=== PATIENT | male | born 1955 | race Caucasian/White ===

== ENCOUNTER 2019-07-30 11:48 | Day surgery (SDC) | payer OTHER ==
[~2019-07-30] VITALS: Ht 193 cm; Wt 109.5 kg
[~2019-07-30 11:48] MED LIST: LOSA50 PO; PANT40 PO; Ventolin/Prove6.7 GM INH; ZYRTEC10 MG PO
--- NOTE | 2019-07-30 14:03 | NUR ---
07/30/19 1403 Kassie Casey UGI BARIUM AND 2 VIEW X RAY SCHEDULED PER DR MCCLOUD. PT AWARE AND PROVIDED APPOINTMENT INFO.
== END 2019-07-30 14:00 | disposition home or self-care (01) ==
LOC: ORSCSDS 11:48
PROVIDERS: Internal Medicine Gastroenterology
PROC: 0DBK8ZX Excision of Ascending Colon, Via Natural or Artificial Opening Endoscopic, Diagnostic (ICD-10-PCS; principal; 2019-07-30 13:00)
PROC: 0DBH8ZX Excision of Cecum, Via Natural or Artificial Opening Endoscopic, Diagnostic (ICD-10-PCS; principal; 2019-07-30 13:00)
PROC: 0DBN8ZX Excision of Sigmoid Colon, Via Natural or Artificial Opening Endoscopic, Diagnostic (ICD-10-PCS; principal; 2019-07-30 13:00)
PROC: 0DBM8ZX Excision of Descending Colon, Via Natural or Artificial Opening Endoscopic, Diagnostic (ICD-10-PCS; principal; 2019-07-30 13:00)
DX: Z12.11 Encounter for screening for malignant neoplasm of colon (principal); Z86.010 Personal history of colon polyps; D12.4 Benign neoplasm of descending colon; D12.2 Benign neoplasm of ascending colon; D12.0 Benign neoplasm of cecum; K63.5 Polyp of colon; K21.9 Gastro-esophageal reflux disease without esophagitis; K57.30 Diverticulosis of large intestine without perforation or abscess without bleeding; E66.9 Obesity, unspecified; Z68.33 Body mass index [BMI] 33.0-33.9, adult; F17.210 Nicotine dependence, cigarettes, uncomplicated; Z79.899 Other long term (current) drug therapy
CPT/HCPCS: 88305; J2704; J7120

== ENCOUNTER 2019-08-20 08:36 | Day surgery (SDC) | payer OTHER ==
[~2019-08-20] VITALS: Ht 188 cm; Wt 113.8 kg
[2019-08-20] MEDS ORDERED: OSTERA TABLET1 EACH (08:54)
[2019-08-20] MEDS ORDERED: ACET120S (08:54)
== END 2019-08-20 10:43 | disposition home or self-care (01) ==
LOC: ORSCSDS 08:36
PROVIDERS: Internal Medicine Gastroenterology
PROC: 0D758ZZ Dilation of Esophagus, Via Natural or Artificial Opening Endoscopic (ICD-10-PCS; principal; 2019-08-20 09:45)
DX: K21.9 Gastro-esophageal reflux disease without esophagitis (principal); E66.9 Obesity, unspecified; J45.909 Unspecified asthma, uncomplicated; Z68.33 Body mass index [BMI] 33.0-33.9, adult; F17.210 Nicotine dependence, cigarettes, uncomplicated; Z79.899 Other long term (current) drug therapy
CPT/HCPCS: C1726; J2704; J7120

== ENCOUNTER → 2020-08-05 | Outpatient (CLI) | payer OTHER ==
[~2020-08-05] MED LIST changes: +ACET120S; +OSTERA TABLET1 EACH
== END | disposition home or self-care (01) ==
LOC: LAB SHORT 11:59 → PLD 11:59
DX: D48.5 Neoplasm of uncertain behavior of skin (principal); L82.1 Other seborrheic keratosis
CPT/HCPCS: 88305

== ENCOUNTER 2021-04-14 15:21 | Day surgery (SDC) | payer MEDICARE, OTHER ==
[2021-04-14] MEDS ORDERED: ALMACONE SUSPE355 ML (16:24)
[2021-04-14] MEDS ORDERED: BENADRYL25 MG PO (16:25)
[2021-04-14] MEDS ORDERED: CONSTULOSE10 GM/15 M PO (16:26)
[2021-04-14] MEDS ORDERED: FURO20 PO (16:26)
[2021-04-14] MEDS ORDERED: MIDO5 PO (16:27)
[2021-04-14] MEDS ORDERED: B-1100 M1 PO (16:27)
[2021-04-14] MEDS ORDERED: Aldactone50 MG PO (16:27)
== END 2021-04-14 18:15 | disposition home or self-care (01) ==
LOC: ATC 15:21
DX: K70.31 Alcoholic cirrhosis of liver with ascites (principal)
CPT/HCPCS: 49083; 96365; 96366; P9046

== ENCOUNTER 2021-05-13 13:30 | Day surgery (SDC) | payer MEDICARE, OTHER ==
[~2021-05-13 13:30] MED LIST changes: +ALMACONE SUSPE355 ML; +Aldactone50 MG PO; +B-1100 M1 PO; +BENADRYL25 MG PO; +CONSTULOSE10 GM/15 M PO; +FURO20 PO; +MIDO5 PO
== END 2021-05-13 23:56 | disposition home or self-care (01) ==
LOC: US 13:30
DX: K70.31 Alcoholic cirrhosis of liver with ascites (principal)
CPT/HCPCS: 49083

== ENCOUNTER 2021-05-20 13:50 | Day surgery (SDC) | payer MEDICARE, OTHER | END 2021-05-20 23:00 | disposition home or self-care (01) | LOC: US 13:50 | DX: K70.31 Alcoholic cirrhosis of liver with ascites (principal) | CPT/HCPCS: 49083 ==

== ENCOUNTER 2021-05-27 13:39 | Day surgery (SDC) | payer MEDICARE, OTHER | END 2021-05-27 14:00 | disposition home or self-care (01) | LOC: US 13:39 | DX: K70.31 Alcoholic cirrhosis of liver with ascites (principal) | CPT/HCPCS: 49083 ==

== ENCOUNTER 2021-06-03 13:32 | Day surgery (SDC) | payer MEDICARE, OTHER | END 2021-06-03 22:57 | disposition home or self-care (01) | LOC: US 13:32 | DX: K70.31 Alcoholic cirrhosis of liver with ascites (principal) | CPT/HCPCS: 49083 ==

== ENCOUNTER 2021-06-10 13:35 | Day surgery (SDC) | payer MEDICARE, OTHER | END 2021-06-10 23:48 | disposition home or self-care (01) | LOC: US 13:35 | DX: K70.31 Alcoholic cirrhosis of liver with ascites (principal) | CPT/HCPCS: 49083 ==

== ENCOUNTER 2021-06-17 13:34 | Day surgery (SDC) | payer MEDICARE, OTHER | END 2021-06-17 23:29 | disposition home or self-care (01) | LOC: ATC 13:34 → US 13:34 → ATC 23:29 | DX: K70.31 Alcoholic cirrhosis of liver with ascites (principal) | CPT/HCPCS: 49083; 96365; 96366; P9046 ==

== ENCOUNTER 2021-06-26 08:45 | Day surgery (SDC) | payer MEDICARE, OTHER | END 2021-06-26 23:18 | disposition home or self-care (01) | LOC: US 08:45 | DX: K70.31 Alcoholic cirrhosis of liver with ascites (principal) | CPT/HCPCS: 49083 ==

== ENCOUNTER 2021-07-03 14:51 | Day surgery (SDC) | payer MEDICARE, OTHER | END 2021-07-03 23:01 | disposition home or self-care (01) | LOC: US 14:51 | DX: K70.31 Alcoholic cirrhosis of liver with ascites (principal) | CPT/HCPCS: 49083 ==

== ENCOUNTER 2021-07-08 13:33 | Day surgery (SDC) | payer MEDICARE, OTHER | END 2021-07-08 23:06 | disposition home or self-care (01) | LOC: US 13:33 | DX: K70.31 Alcoholic cirrhosis of liver with ascites (principal) | CPT/HCPCS: 49083 ==

== ENCOUNTER 2021-07-22 13:47 | Day surgery (SDC) | payer MEDICARE, OTHER | END 2021-07-23 12:00 | disposition home or self-care (01) | LOC: US 13:47 | DX: K70.31 Alcoholic cirrhosis of liver with ascites (principal) | CPT/HCPCS: 49083; P9046 ==

== ENCOUNTER 2021-07-24 22:12 | Inpatient (IN) | payer MEDICARE ==
[~2021-07-24] VITALS: Ht 185.4 cm; Wt 88.2 kg
[~2021-07-24 22:12] MED LIST changes: -ALMACONE SUSPE355 ML; +ALMACONE SUSPE355 ML PO
[2021-07-24 22:27] LABS: BASOPHILS ABSOLUTE AUTO 0.03 K/mm3 (0.00-0.23); BASOPHILS PERCENT AUTO 0 % (0-2); EOSINOPHILS ABSOLUTE AUTO 0.19 K/mm3 (0.00-0.68); EOSINOPHILS PERCENT AUTO 2 % (0-6); Hematocrit 37.6 % (37.0-53.0); Hemoglobin 13.7 g/dL (13.5-17.5); IMMATURE GRAN ABSOLUTE AUTO 0.06 K/mm3 (0.00-0.10); IMMATURE GRAN PERCENT AUTO 1 % (0-1); LYMPHOCYTES ABSOLUTE AUTO 1.35 K/mm3 (0.84-5.20); LYMPHOCYTES PERCENT AUTO 12 % (21-46); MONOCYTES ABSOLUTE AUTO 1.56 K/mm3 (0.16-1.47); MONOCYTES PERCENT AUTO 14 % (4-13); Mean Corpuscular HGB 34.3 pg (26.0-34.0); Mean Corpuscular HGB Conc 36.4 g/dL (31.5-36.5); Mean Corpuscular Volume 94 fL (80-100); Mean Platelet Volume 9.8 fL (9.1-12.4); NEUTROPHILS ABSOLUTE AUTO 7.69 K/mm3 (1.96-9.15); NEUTROPHILS PERCENT AUTO 71 % (41-73); Platelet Count 204 K/mm3 (150-400); RDW Coefficient Variation 15.1 % (11.7-14.2); RDW Standard Deviation 52.7 fL (35.1-46.3); Red Blood Cell Count 3.99 M/mm3 (4.30-5.90); White Blood Cell Count 10.88 K/mm3 (4.00-11.30)
[2021-07-24 23:04] LABS: Alanine Aminotransfer (ALT/SGP 46 U/L (12-78); Albumin, Blood 2.8 g/dL (3.4-5.0); Albumin/Globulin Ratio 0.6 (0.8-1.8); Alk Phos 165 U/L (50-136); Anion Gap 7 mmol/L (6-16); Aspartate Aminotrans (AST/SGOT 65 U/L (12-37); Bilirubin, Total 1.2 mg/dL (0.1-1.0); Blood Urea Nitrogen 53 mg/dL (8-24); CO2, Blood 19 mmol/L (21-32); Chloride, Blood 104 mmol/L (98-108); Creatinine, Blood 1.04 mg/dL (0.60-1.20); Globulin, Blood 4.5 g/dL (2.2-4.0); Glomerular Filtration Rate >60 (60-); Glucose, Blood 115 mg/dL (70-99); Potassium, Blood 6.3 mmol/L (3.5-5.5); Sodium, Blood 130 mmol/L (136-145); Total Protein, Blood 7.3 g/dL (6.4-8.2)
[2021-07-24 23:16] LABS: International Normalized Ratio 1.17; Prothrombin Time Results 12.2 Sec (9.7-11.5)
[2021-07-25 00:32] LABS: Base Excess Venous -5.9 mmol/L; Bicarbonate Venous 20.6 mmol/L (24.0-30.0); PCO2 Venous 30.3 mmHg (38-42); PO2 Venous 95.2 mmHg (38-42)
[2021-07-25 01:18] LABS: Influenza A, PCR NEGATIVE (NEGATIVE); Influenza B, PCR NEGATIVE (NEGATIVE); Resp Syncytial Virus, PCR NEGATIVE (NEGATIVE); SARS-Cov-2 (COVID-19) PCR, MMC NEGATIVE (NEGATIVE)
[2021-07-25 03:06] LABS: Source, Urine Clean Catch
[2021-07-25 03:08] LABS: Bilirubin, Urine Neg (Neg); Blood, Urine 5+ (Neg); Glucose Qualitative, Urine Neg (Neg); Ketones, Urine Neg (Neg); Leukocyte Esterase, Urine 1+ (Neg); Nitrite, Urine Neg (Neg); Protein, Urine 2+ (Neg); Urobilinogen, Urine NORM (Normal)
[2021-07-25 03:21] LABS: Appearance, Urine Hazy (Clear); Color, Urine Red (P-Yellow)
[2021-07-25 03:22] LABS: Bacteria Rare /hpf; Red Blood Cells, Urine TNTC /hpf (0-2); Squamous Epithelial Cells Few /hpf (Few); White Blood Cells, Urine Rare /hpf (0-5)
[2021-07-25 09:37] LABS: BASOPHILS ABSOLUTE AUTO 0.03 K/mm3 (0.00-0.23); BASOPHILS PERCENT AUTO 0 % (0-2); EOSINOPHILS ABSOLUTE AUTO 0.09 K/mm3 (0.00-0.68); EOSINOPHILS PERCENT AUTO 1 % (0-6); Hematocrit 36.3 % (37.0-53.0); Hemoglobin 13.1 g/dL (13.5-17.5); IMMATURE GRAN ABSOLUTE AUTO 0.07 K/mm3 (0.00-0.10); IMMATURE GRAN PERCENT AUTO 1 % (0-1); LYMPHOCYTES ABSOLUTE AUTO 0.83 K/mm3 (0.84-5.20); LYMPHOCYTES PERCENT AUTO 6 % (21-46); MONOCYTES ABSOLUTE AUTO 1.59 K/mm3 (0.16-1.47); MONOCYTES PERCENT AUTO 12 % (4-13); Mean Corpuscular HGB 33.8 pg (26.0-34.0); Mean Corpuscular HGB Conc 36.1 g/dL (31.5-36.5); Mean Corpuscular Volume 94 fL (80-100); Mean Platelet Volume 10.2 fL (9.1-12.4); NEUTROPHILS ABSOLUTE AUTO 10.63 K/mm3 (1.96-9.15); NEUTROPHILS PERCENT AUTO 80 % (41-73); Platelet Count 223 K/mm3 (150-400); RDW Coefficient Variation 15.1 % (11.7-14.2); RDW Standard Deviation 52.2 fL (35.1-46.3); Red Blood Cell Count 3.88 M/mm3 (4.30-5.90); White Blood Cell Count 13.24 K/mm3 (4.00-11.30)
[2021-07-25 09:57] LABS: Alanine Aminotransfer (ALT/SGP 44 U/L (12-78); Albumin, Blood 2.7 g/dL (3.4-5.0); Albumin/Globulin Ratio 0.7 (0.8-1.8); Alk Phos 117 U/L (50-136); Anion Gap 9 mmol/L (6-16); Aspartate Aminotrans (AST/SGOT 64 U/L (12-37); Bilirubin, Total 1.9 mg/dL (0.1-1.0); Blood Urea Nitrogen 55 mg/dL (8-24); Bun/Creatinine Ratio 45.8 (12.0-20.0); CO2, Blood 17 mmol/L (21-32); Calcium, Blood 9.3 mg/dL (8.5-10.1); Chloride, Blood 106 mmol/L (98-108); Globulin, Blood 3.8 g/dL (2.2-4.0); Glomerular Filtration Rate >60 (60-); Glucose, Blood 119 mg/dL (70-99); Sodium, Blood 132 mmol/L (136-145); Total Protein, Blood 6.5 g/dL (6.4-8.2)
[2021-07-25 10:03] LABS: Albumin, Blood 2.6 g/dL (3.4-5.0)
[2021-07-25 11:34] LABS: Base Excess Venous -5.1 mmol/L; Bicarbonate Venous 21.8 mmol/L (24.0-30.0); PCO2 Venous 22.3 mmHg (38-42); PO2 Venous 119 mmHg (38-42); pH Blood Venous 7.51 (7.34-7.37)
[2021-07-25 11:34] LABS: Automated BF RBC Count 0.005 M/mm3 (0-0); Automated BF WBC Count 0.261 K/mm3 (0-999); Body Fluid WBC Count 261 /mm3 (0-999); RBC Count, Body Fluid 5000 /mm3 (0-0)
[2021-07-25 11:43] LABS: Albumin, Body Fluid 0.3 g/dL
[2021-07-25 11:55] LABS: Appearance, Body Fluid Cloudy (Clear); Color, Body Fluid Amber (None-Yellow); Total Cell Count, Body Fluid 100
[2021-07-25 11:57] LABS: Lactate Dehydrogenase, Body Fl 68 U/L
[2021-07-25 12:00] LABS: Protein, Body Fluid 1.1 g/dL
[2021-07-25 13:37] LABS: Glucose, Blood 110 mg/dL (70-99)
--- NOTE | 2021-07-25 15:20 | NUR ---
REPORT RECIEVED FROM ER NURSE AT 1137
[2021-07-25 16:27] LABS: Glucose, Body Fluid 134 mg/dL
--- NOTE | 2021-07-25 16:48 | NUR ---
RECTAL TUBE PLACED AT 1600. LACTULOSE MIXED WITH 700ML STERILE WATER AND ADMINISTERED PER TUBE, TOTALING 1,000ML INPUT. 700ML WAS IN BAG WHEN REMOVED. STAFF AND THIS RN WAS CLEANING PT, ADDITION LACTULOSE LIQUIDS BEGAN LEAKING OUT OF PT ANUS; UNMEASURABLE AMOUNT.
--- NOTE | 2021-07-25 18:28 | NUR ---
UPDATE PT ARRIVED TO UNIT AT 1536 VIA [facility]. PT WAS TRANSFERED TO PCU BED WITH SLIDE SHEET 4 MEDICAL PERSONEL. PT WOULD MOAN WHEN BEING MOVED. PT REMAINED IN THE BROWN WHILE PT WAS TRANSFERED, RECTAL TUBE PLACED, LACTULOSE ADMINISTERED, AND CLEANED UP AFTER INTERVENTION. ONCWE PT WAS IN ROOM, SHE ASKED NURSE "CAN I GET A PRINT OUT OF HIS LABS." THIS RN INFORMED SPOUSE THAT WE ARE NOT ABLE TO PRINT THE VALUES OUT BUT COULD LOOK THEM UP. PT THEN ASKED "CAN I STAY WITH HIM PETERT?" SPOUSE WAS INFORMED THAT VISITATION WAS FROM 2PM-6PM AND THAT ANY ADDITION VISITATION TIME WAS WOULD HAVE TO BE CLEARED BY THE ARMOND NURSE ON DUTY. SPOUSE STATED "WELL HE CANNOT SPEAK FOR HIMSELF." PT THEN ASKED FOR PATIENT ADVOCATE, THIS RN SAID HE WILL TRY TO HAVE THE ADVOCATE COME. AFTER FINDING OUT THAT PATIENT ADVOCATES WILL NOT BE PRESENT UNTIL TUESDAY, PT SPOUSE ASKED FOR NURSING FINNISH RUBBER. NURSE FINNISH RUBBER SPOKE WITH SPOUSE. NURSE FINNISH RUBBER ASKED THIS RN TO CONTACT DOCTOR AND ASK IF THE DOCTOR COULD TALK WITH SPOUSE ABOUT PLAN OF CARE FOR PT. THIS RN CONTACTED DR LLOYD. DR VALIENTE SPOKE WITH SPOUSE OF PT AND THEN WITH POULTRY VETERINARIAN. POULTRY VETERINARIAN INFORMED THIS RN THAT PT SPOUSE COULD STAY UNTIL 8PM AND THAT AFTER THAT SPUSE SHOULD TRY AND HEAD HOME TO GET SOME SLEEP.
--- NOTE | 2021-07-25 19:42 | NUR ---
SHIFT UPDATE PT OBTUNDED WHEN ARRIVED TO UNIT. PT USING ACCESSORY MUSCLES WHEN BREATHING UPON ARRIVAL, BREATHING MORE AT EASE AT END OF SHIFT. PT AT BEDSIDE. NG TUBE IN PLACE. NS RUNNING PER EMAR.
[2021-07-26 04:03] LABS: BASOPHILS ABSOLUTE AUTO 0.03 K/mm3 (0.00-0.23); BASOPHILS PERCENT AUTO 0 % (0-2); EOSINOPHILS ABSOLUTE AUTO 0.08 K/mm3 (0.00-0.68); EOSINOPHILS PERCENT AUTO 1 % (0-6); Hematocrit 38.7 % (37.0-53.0); Hemoglobin 13.6 g/dL (13.5-17.5); IMMATURE GRAN ABSOLUTE AUTO 0.05 K/mm3 (0.00-0.10); IMMATURE GRAN PERCENT AUTO 0 % (0-1); LYMPHOCYTES ABSOLUTE AUTO 0.92 K/mm3 (0.84-5.20); LYMPHOCYTES PERCENT AUTO 7 % (21-46); MONOCYTES ABSOLUTE AUTO 1.79 K/mm3 (0.16-1.47); MONOCYTES PERCENT AUTO 14 % (4-13); Mean Corpuscular HGB 33.7 pg (26.0-34.0); Mean Corpuscular HGB Conc 35.1 g/dL (31.5-36.5); Mean Corpuscular Volume 96 fL (80-100); Mean Platelet Volume 10.1 fL (9.1-12.4); NEUTROPHILS ABSOLUTE AUTO 10.35 K/mm3 (1.96-9.15); NEUTROPHILS PERCENT AUTO 78 % (41-73); Platelet Count 174 K/mm3 (150-400); RDW Coefficient Variation 15.4 % (11.7-14.2); RDW Standard Deviation 54.4 fL (35.1-46.3); Red Blood Cell Count 4.04 M/mm3 (4.30-5.90); White Blood Cell Count 13.22 K/mm3 (4.00-11.30)
[2021-07-26 04:22] LABS: Alanine Aminotransfer (ALT/SGP 47 U/L (12-78); Albumin, Blood 2.6 g/dL (3.4-5.0); Albumin/Globulin Ratio 0.6 (0.8-1.8); Alk Phos 84 U/L (50-136); Anion Gap 7 mmol/L (6-16); Aspartate Aminotrans (AST/SGOT 72 U/L (12-37); Bilirubin, Total 3.5 mg/dL (0.1-1.0); Blood Urea Nitrogen 56 mg/dL (8-24); Bun/Creatinine Ratio 47.5 (12.0-20.0); CO2, Blood 17 mmol/L (21-32); Chloride, Blood 114 mmol/L (98-108); Creatinine, Blood 1.18 mg/dL (0.60-1.20); Globulin, Blood 4.3 g/dL (2.2-4.0); Glomerular Filtration Rate >60 (60-); Glucose, Blood 113 mg/dL (70-99); Magnesium, Blood 1.8 mg/dL (1.6-2.4); Potassium, Blood 5.6 mmol/L (3.5-5.5); Sodium, Blood 138 mmol/L (136-145); Total Protein, Blood 6.9 g/dL (6.4-8.2)
--- NOTE | 2021-07-26 06:04 | NUR ---
SHIFT SUMMARY PT HAS HAD VERY LITTLE SLEEP. HE HAS BEEN VERY RESTLESS, MOANING AND JERKING T/O THE NIGHT. PT WILL OPEN EYES BUT DOES NOT FOLLOW COMMANDS. PT SEEMS VERY UNCOMFORTABLE AND WILL SHIFT TO RIGHT SIDE SOMTIMES CURL TO POSITION. THIS MORNING PT SAID "OWE" AND ATTEMPTED SITTING UP SEVERAL TIMES. THIS NURSE CALLED DR ESTRADA TO GET PAIN MED AND VEST ORDER. VITALS ARE STABLE AND IS ON ROOM AIR. HE HAS HAD LACTULOSE PER TUBE WITH ONLY SMALL SOFT BM AT BEGINING OF SHIFT. BED ALARM IS ACTIVATED DUE TO JERKING AND ATTEMPTING TO SIT UP. CALL LIGHT IS WITHIN REACH.
[2021-07-26 13:44] LABS: Anion Gap 10 mmol/L (6-16); Blood Urea Nitrogen 56 mg/dL (8-24); Bun/Creatinine Ratio 47.9 (12.0-20.0); CO2, Blood 15 mmol/L (21-32); Calcium, Blood 9.9 mg/dL (8.5-10.1); Chloride, Blood 116 mmol/L (98-108); Creatinine, Blood 1.17 mg/dL (0.60-1.20); Glomerular Filtration Rate >60 (60-); Glucose, Blood 101 mg/dL (70-99); Sodium, Blood 141 mmol/L (136-145)
--- NOTE | 2021-07-26 17:25 | NUR ---
SHIFT SUMMARY; ASSUMED CARE AT 0700. ALERT TO VERBAL AND PHYSICAL STIMULI ONLY. DOES NOT FOLLOW COMMANDS, MOANS, YELLS, AND PULLS AGAINST RESTRAINTS. AGITATED AND KICKING WITH CARE. BILATERAL WRIST RESTRAINTS IN PLACE. NG TUBE INPLACE, NS INFUSING AT 50ML/HR. LIQUID DIARRHEA CONTINUALLY THROUGHOUT DAY. RECTAL TUBE PLACED. MULTIPLE BED CHANGES DURING SHIFT WITH ETHAN CARE. SKIN TEARS BILATERALLY ON ARMS. MEPILEX PLACED TO ELBOWS AND FOREARM OF LEFT ARM. QUITE AND SLEEPS WHEN NOT IN ROOM. SPOUSE TO BEDSIDE IN AFTERNOON AND WAS UPDATED BY ATTENDING MD. NO MEDS FOR AGITATION AT THIS TIME DUE TO NEED TO MONITOR NEURO STATUS. ORAL CARE DIFFICULT, PULLS HEAD, CLINCHES TEETH, YELLS WHEN ATTEMPTED. SEVERAL ATTEMPTS DURING SHIFT. MOUTH MOISTURIZER APPLIED. VSS, WILL CONTINUE TO MONITOR AND TREAT UNTIL CHANGE OF SHIFT.
--- NOTE | 2021-07-26 20:43 | NUR ---
CARE ASSUMPTION PT ALERT, NOT ORIENTED. MOANS, YELLS "HELP ME". SP02>92% ON RA. TELEMETRY READS NSR HR 80'S. MEDS GIVEN THROUGH NG TUBE. PT PULLED RECTAL TUBE UPON CARE ASSUMPTION, NO BLEEDING NOTED. LINEN CHANGED. C/D ATTENDS IN PLACE. PT MOVING FREQUENTLY, MOANING, TRYING TO PULL AT LINES AND CORDS. TUFF CUFFS IN PLACE. ORAL CARE ATTEMPTED, PT THRASHING HEAD AND ATTEMPTING TO BITE. BED ALARM ON.
[2021-07-27 04:56] LABS: Alanine Aminotransfer (ALT/SGP 40 U/L (12-78); Albumin, Blood 2.1 g/dL (3.4-5.0); Albumin/Globulin Ratio 0.6 (0.8-1.8); Alk Phos 66 U/L (50-136); Anion Gap 8 mmol/L (6-16); Aspartate Aminotrans (AST/SGOT 72 U/L (12-37); Blood Urea Nitrogen 50 mg/dL (8-24); Bun/Creatinine Ratio 49.5 (12.0-20.0); CO2, Blood 14 mmol/L (21-32); Calcium, Blood 8.5 mg/dL (8.5-10.1); Chloride, Blood 125 mmol/L (98-108); Creatinine, Blood 1.01 mg/dL (0.60-1.20); Globulin, Blood 3.7 g/dL (2.2-4.0); Glomerular Filtration Rate >60 (60-); Glucose, Blood 90 mg/dL (70-99); Magnesium, Blood 1.6 mg/dL (1.6-2.4); Potassium, Blood 3.7 mmol/L (3.5-5.5); Sodium, Blood 147 mmol/L (136-145); Total Protein, Blood 5.8 g/dL (6.4-8.2)
--- NOTE | 2021-07-27 07:35 | NUR ---
SHIFT SUMMARY PT ALERT, ORIENTED TO SELF. MOANS, ABLE TO ANSWER BASIC YES OR NO QUESTIONS. SP02>92% ON RA. TELEMETRY READS NSR HR 80'S. MEDS GIVEN THROUGH NG TUBE. PT PULLED RECTAL TUBE UPON CARE ASSUMPTION, NO BLEEDING NOTED. LINEN CHANGED MULTIPLE TIMES THIS SHIFT. C/D ATTENDS IN PLACE. PT MOVING FREQUENTLY, MOANING, TRYING TO PULL AT LINES AND CORDS. TUFF CUFFS IN PLACE. PT ALLOWED ORAL CARE X2 THIS SHIFT. BED ALARM ON.
--- NOTE | 2021-07-27 11:49 | NUR ---
PT REFUSED ORAL CARE ON ROOF OF MOUTH AND IN THE BACK OF THE MOUTH. PT ALLOWED ORAL CARE ON FRONT/SIDE TEETH. FOLLOWED COMMANDS TO OPEN MOUTH AND SMILE.
--- NOTE | 2021-07-27 17:34 | NUR ---
SHIFT SUMMARY PT CONTINUES TO BE CONFUSED AND AGITATED THROUGHOUT THE SHIFT. ALERT AND ORIENTED X2 TO SELF AND PLACE. BED ALARM AND RAILS IN PLACE. BILATERAL WRIST RETRAINTS. PATIENT CONTINUES TO ASK FOR HELP TO REMOVE RESTRAINTS. UNABLE TO REDIRECT. PT PULLED NG TUBE OUT IN AM. NEW NG TUBE PLACED AROUND 1400. AIR ASPIRATION TO VERIFY PLACEMENT. SCATTERED WOUNDS WITH OPTIFOAM DRESSINGS ON BILATERAL FOREARMS, WRISTS, AND ELBOWS. REDNESS TO COCCYX. PT IS INCONTINENT OF B/B. MAX ASSIST X2 FOR BED AND ATTENDS CHANGES. BEDDING CHANGED SEVERAL TIMES DURING SHIFT. CONTINUED LOOSE STOOLS IN SMALL AMOUNTS. CARDIAC AND RESP ASSESSMENTS WNL. SNR NOTED, HR IN THE 90S, SBP 130-140S, DBP 80S-90S. TELE DISCONTINUED. O2 SATS 100 ON RA. PT CONTINUES TO BE NPO. TOLERATING ORAL CARE. FOLLOWS SIMPLE COMMANDS. PO MEDS VIA NG TUBE. DNR ORDERS, WRIST BAND ON DOOR AND ON LT WRIST. 20G PERIPHERAL IV INTACT AND RUNNING FLUIDS AT 50MLS/HR. SPOUSE AT BEDSIDE DURING VISITING HOURS. PALLIATIVE CARE AND DOCTOR TALKED WITH SPOUSE DURING HER VISIT.
--- NOTE | 2021-07-27 18:02 | NUR ---
SHIFT SUMMARY PT HAS BEEN RESTING IN BED. PT HAS BEEN RESTLESS AND CRYING OUT ALMOST CONSTANTLY. UNABLE TO REORIENT PT. THIS EVENING PT IS ORIENTED TO SELF, SPOUSE, AND KNOWS THAT THEY ARE IN "A HOSPITAL." PT HAS BEEN PULLING AT RESTRAINTS CONSTANTLY. PT PULLED NG TUBE AT APPROXIMATELY 1200 AND A NEW NG TUBE WAS PLACED AT APPROXIMATELY 1400 ON SECOND ATTEMPT. PT CRIES OUT FOR HELP AND ASKS FOR BILATERAL WRIST RESTRAINTS TO BE REMOVED. WHEN ASKED DIRECTLY WHAT THEY WANT HELP FOR, PT HAS A BLANK LOOK AND STATES "I DON'T KNOW." ALL VSS, NO OTHER CHANGES TO CONDITION.
[2021-07-28 04:46] LABS: Albumin, Blood 2.6 g/dL (3.4-5.0); Albumin/Globulin Ratio 0.6 (0.8-1.8); Bilirubin, Total 3.2 mg/dL (0.1-1.0); Bun/Creatinine Ratio 51.8 (12.0-20.0); Calcium, Blood 10.1 mg/dL (8.5-10.1); Creatinine, Blood 1.37 mg/dL (0.60-1.20); Globulin, Blood 4.1 g/dL (2.2-4.0); Magnesium, Blood 2.5 mg/dL (1.6-2.4); Potassium, Blood 4.6 mmol/L (3.5-5.5); Total Protein, Blood 6.7 g/dL (6.4-8.2)
--- NOTE | 2021-07-28 05:04 | NUR ---
SHIFT SUMMARY PT MENTATION HAS IMPROVED SLIGHTLY THIS SHIFT. LACTULOSE SUCCESFUL, MULTIPLE BM'S PRODUCED. PT REMAINS IN BILAT WRIST RESTRAINTS, EVERY TIME A BREAK PROVIDED, PT REACHED FOR EITHER HIS IV OR NG TUBE. WILL CONTINUE TO REEVALUATE NEED FOR RESTRAINTS. VSS T/O SHIFT. PT HAS BEEN PLEASANT. ORAL CARE PROVIDED, PT SOMEWHAT ALLOWED THIS. OTHERWISE, PT RESTING OFF AND ON IN ROOM. NG TUBE PATENT AND SECURE. BED ALARM ON, BED IN LOW POSITION.
[2021-07-28 15:07] LABS: Bun/Creatinine Ratio 50.4 (12.0-20.0); Calcium, Blood 10.1 mg/dL (8.5-10.1); Creatinine, Blood 1.41 mg/dL (0.60-1.20); Potassium, Blood 4.4 mmol/L (3.5-5.5)
--- NOTE | 2021-07-28 22:11 | NUR ---
CARE ASSUMPTION PT IS AXO X2-3. PT FOLLOWING COMMANDS BUT IS CONFUSED ABOUT WHERE HE IS AND HOW LONG HE HAS BEEN HERE. VSS AND WNL. TAT RESTRAINTS IN PLACE AND PT EDUCATED ON WHY HE IS IN THEM. NG TUBE IN PLACE. RECTAL TUBE PLACED PT CONTINUES TO HAVE LIQUID STOOLS DUE TO LACTULOSE. D5W RUNNING AT 75ML/HR. PT SLEEPING IN BED W CALL LIGHT IN PLACE.
[2021-07-29 04:45] LABS: Albumin, Blood 2.7 g/dL (3.4-5.0); Albumin/Globulin Ratio 0.7 (0.8-1.8); Bilirubin, Total 2.5 mg/dL (0.1-1.0); Bun/Creatinine Ratio 53.5 (12.0-20.0); Calcium, Blood 9.8 mg/dL (8.5-10.1); Creatinine, Blood 1.29 mg/dL (0.60-1.20); Globulin, Blood 3.9 g/dL (2.2-4.0); Magnesium, Blood 2.3 mg/dL (1.6-2.4); Potassium, Blood 4.1 mmol/L (3.5-5.5); Total Protein, Blood 6.6 g/dL (6.4-8.2)
--- NOTE | 2021-07-29 05:37 | NUR ---
SUPERVISOR CUSTOMER RECORDS DIVISION SUMMARY PT IS AXO X3 THIS SHIFT AND HAS BEEN COOPERATIVE WITH CARE UNTIL EARLY THIS AM WHEN HE EXPRESSED HIS DESIRE TO GO HOME AND REFUSING ANY MEDICATION AND TREATMENT. PT REMAINED IN TAT RESTRAINTS THIS SHIFT TO PROTECT RECTAL TUBE AND NG TUBE HE HAS BEEN PULLING THEM OUT. PT HAS HAD LARGE AMOUNTS OF LOOSE EZRA THIS SHIFT. BLADDER SCAN REVEALED 800ML URINE THIS SHIFT AND PT WAS STRAIGHT CATHED PER ORDER GETTING 600ML URINE OUT. ORAL CARE PROVIDED THROUGHOUT THE SHIFT THE PT HAD C/O THIRST DUE TO NPO STATUS. WILL REPORT TO ONCOMING RN.
[2021-07-29] MEDS ORDERED: TAMS.4ER PO (12:39)
[2021-07-29] MEDS ORDERED: LACT PO (12:40)
--- NOTE | 2021-07-29 14:53 | NUR ---
SHIFT SUMMARY; ASSUMED CARE AT 0700. A/A/OX4. RESTRAINTS DC'D PER MD. FOLLOWING COMMANDS, PLEASANT AND COOPERATIVE WITH CARE. EVALUATED BY SPEECH THERAPY. NG TUBE DC'D TODAY. DIET ORDERED. PT STATES WANTING TO GO HOME AND THAT WAS NOT TAKING HIS LACTULOSE PERSCRIBED AT HOME. PT/OT ORDERED FOR EVAL PRIOR TO DISCHARGE. REPORT GIVEN TO VEE NICOLE ON MEDICAL FLOOR FOR IN HOUSE TRANSFER.
--- NOTE | 2021-07-29 15:19 | NUR ---
ARRIVES FROM PCU VIA W/C. FIRST AMBULATING. DEMANDING. STS "I CAN LEAVE ANYTIME." ADVISED THAT YES HE CAN LEAVE ANYTIME. SUCTION SET UP AND COVERED YANKAUER GIVEN TO PATIENT. EXTRA BLANKETS GIVEN AND ICE CHIPS. LUNGS DIM T/O. SKIN TEARS WITH MEPILEX TO BUE. RECTAL TUBE IN PLACE. WCTM
--- NOTE | 2021-07-29 18:09 | NUR ---
RECTAL TUBE D'C. PATIENT TOLERATED WELL. NO BLEEDING OR SWELLING AT RECTAL SITE.
--- NOTE | 2021-07-29 18:45 | NUR ---
PATIENT TO BATHROOM. STEADY GAIT. UNCOLLECTED URINE AND STOOL.
--- NOTE | 2021-07-29 23:08 | NUR ---
CHARGE NURSE, KIRILL CAIN RN DISCHARGED THE PATIENT-PROVIDED THE DISCHARGE TEACHING INCLUDING MEDICATIONS, CALLING TO SCHEDULE FOLLOW-UP APPOINTMENT WITH PROVIDER AND THAT CARE MANAGEMENT WILL CALL PT REGARDING GETTING HOME HEALTH SET UP AT ABOUT 2024. PT LEFT THE FLOOR VIA WHEELCHAIR WITH ALL OF HIS BELONGINGS ACCOMPANIED BY HIS . 1 ADDITIONAL VISITOR, ASSISTED BY KIRILL CAIN RN. ALL LINES AND TUBES WERE DISCONTINUED BY COREY CANTRELL DURING PREVIOUS SHIFT. NO COMPLAINTS OR CONCERNS WERE VOICED. PT LEFT IN STABLE CONDITION.
== END 2021-07-29 20:30 | disposition home health service (06) | DRG 433 ==
LOC: ER 22:12 → PCU 07-25 00:40 → ERHOLD 07-25 00:40 → PCU 07-25 15:38 → MEDS 07-29 15:03
PROVIDERS: Emergency Medicine; Family Medicine; Internal Medicine; ADMIT Internal Medicine
DX: K70.31 Alcoholic cirrhosis of liver with ascites (principal); N17.9 Acute kidney failure, unspecified; E87.0 Hyperosmolality and hypernatremia; E87.2 Acidosis; E87.3 Alkalosis; K72.90 Hepatic failure, unspecified without coma; Z20.822 Contact with and (suspected) exposure to COVID-19; I10 Essential (primary) hypertension; E83.42 Hypomagnesemia; E87.5 Hyperkalemia; Z66 Do not resuscitate; R33.9 Retention of urine, unspecified; Z88.0 Allergy status to penicillin; Z79.899 Other long term (current) drug therapy
CPT/HCPCS: 0241U; 36415; 49083; 51701; 70450; 71045; 80048; 80053; 81001; 82040; 82042; 82140; 82803; 82945; 82947; 83615; 83735; 84132; 84157; 84295; 85025; 85610; 87040; 87070; 87086; 87205; 89051; 92610; 93005; 93010; 96372; 96374; 96375-59; 96376; 97162; 97166; 97530; 99285-25; A9270; G0480; J0360; J0696; J1650; J1815; J1940; J2060; J3010; J3475; J7030; J7070; J7120; P9046

== ENCOUNTER 2021-08-06 10:35 | Inpatient (IN) | payer MEDICARE ==
[~2021-08-06] VITALS: Ht 188 cm; Wt 84.4 kg
[~2021-08-06 10:35] MED LIST changes: +LACT PO; +TAMS.4ER PO
[2021-08-06 11:35] LABS: BASOPHILS ABSOLUTE AUTO 0.02 K/mm3 (0.00-0.23); BASOPHILS PERCENT AUTO 0 % (0-2); EOSINOPHILS ABSOLUTE AUTO 0.24 K/mm3 (0.00-0.68); EOSINOPHILS PERCENT AUTO 3 % (0-6); Hematocrit 35.3 % (37.0-53.0); Hemoglobin 12.1 g/dL (13.5-17.5); IMMATURE GRAN ABSOLUTE AUTO 0.03 K/mm3 (0.00-0.10); IMMATURE GRAN PERCENT AUTO 0 % (0-1); LYMPHOCYTES ABSOLUTE AUTO 1.35 K/mm3 (0.84-5.20); LYMPHOCYTES PERCENT AUTO 15 % (21-46); MONOCYTES ABSOLUTE AUTO 1.02 K/mm3 (0.16-1.47); MONOCYTES PERCENT AUTO 11 % (4-13); Mean Corpuscular HGB Conc 34.3 g/dL (31.5-36.5); Mean Corpuscular Volume 99 fL (80-100); NEUTROPHILS ABSOLUTE AUTO 6.52 K/mm3 (1.96-9.15); NEUTROPHILS PERCENT AUTO 71 % (41-73); Platelet Count 111 K/mm3 (150-400); RDW Coefficient Variation 15.7 % (11.7-14.2); RDW Standard Deviation 56.5 fL (35.1-46.3); Red Blood Cell Count 3.56 M/mm3 (4.30-5.90); White Blood Cell Count 9.18 K/mm3 (4.00-11.30)
[2021-08-06 11:59] LABS: Ethanol (Alcohol), Blood, Med <3 mg/dL; Troponin I <0.015 ng/mL (0.000-0.040)
[2021-08-06 12:05] LABS: Alanine Aminotransfer (ALT/SGP 54 U/L (12-78); Albumin, Blood 2.9 g/dL (3.4-5.0); Albumin/Globulin Ratio 0.7 (0.8-1.8); Alk Phos 110 U/L (50-136); Anion Gap 7 mmol/L (6-16); Aspartate Aminotrans (AST/SGOT 62 U/L (12-37); Bilirubin, Total 1.6 mg/dL (0.1-1.0); Blood Urea Nitrogen 40 mg/dL (8-24); Bun/Creatinine Ratio 42.5 (12.0-20.0); CO2, Blood 22 mmol/L (21-32); Calcium, Blood 9.1 mg/dL (8.5-10.1); Chloride, Blood 106 mmol/L (98-108); Creatinine, Blood 0.94 mg/dL (0.60-1.20); Globulin, Blood 4.1 g/dL (2.2-4.0); Glomerular Filtration Rate >60 (60-); Glucose, Blood 120 mg/dL (70-99); Potassium, Blood 5.6 mmol/L (3.5-5.5); Sodium, Blood 135 mmol/L (136-145)
[2021-08-06 12:44] LABS: International Normalized Ratio 1.31; Prothrombin Time Results 13.5 Sec (9.7-11.5)
[2021-08-06 15:42] LABS: Source, Urine Clean Catch
[2021-08-06 15:47] LABS: Appearance, Urine Hazy (Clear); Bilirubin, Urine Neg (Neg); Blood, Urine Neg (Neg); Color, Urine Yellow (P-Yellow); Glucose Qualitative, Urine Neg (Neg); Ketones, Urine Neg (Neg); Leukocyte Esterase, Urine Neg (Neg); Nitrite, Urine Neg (Neg); Protein, Urine Neg (Neg); Urobilinogen, Urine NORM (Normal)
[2021-08-06 15:59] LABS: Red Blood Cells, Urine 0-2 /hpf (0-2); Squamous Epithelial Cells Rare /hpf (Few); White Blood Cells, Urine 0-2 /hpf (0-5)
[2021-08-06 16:00] LABS: Bacteria Mod /hpf; Yeast/Fungi Urine Few /hpf
[2021-08-06 16:02] LABS: U Amphetamine Screen Not Detected; U Barbituate Screen Not Detected; U Benzodiazapine Screen Not Detected; U Buprenorphine Screen Not Detected; U Cannabinoids Screen Not Detected; U Cocaine Screen Not Detected; U Methadone Screen Not Detected; U Methamphetamine Screen Not Detected; U Opiates Screen Not Detected; U Oxycodone Screen Not Detected; U Phencyclidine Screen Not Detected; U Propoxyphene Screen Not Detected
[2021-08-06 16:25] LABS: Influenza A, PCR NEGATIVE (NEGATIVE); Influenza B, PCR NEGATIVE (NEGATIVE); Resp Syncytial Virus, PCR NEGATIVE (NEGATIVE); SARS-Cov-2 (COVID-19) PCR, MMC NEGATIVE (NEGATIVE)
[2021-08-06] MEDS ORDERED: PANT40 PO (17:24)
[2021-08-06] MEDS ORDERED: EUTHYROX50 MCG PO (17:24)
--- NOTE | 2021-08-06 22:34 | NUR ---
ADMIT NOTE PT ARRIVED TO PCU FROM ED VIA ED STRETCHER, ACCOMPANIED BY PT'S . PT ARRIVED IN SOFT WRIST RESTRAINTS. PT WAS SLID BY 4 STAFF FROM ED STRETCHER TO PCU BED. PT ALERT, MOANING, COMBATIVE, NOT COOPERATIVE. SP02>92% RA. TELEMETRY SHOWS NSR, HR 70'S. VSS. PT HAS RECTAL TUBE DRAINING BROWN LIQUID STOOL TO GRAVITY. CALL PLACED TO MD ESTRADA, MD ESTRADA W/ ORDERS TO PLACE MCKENZIE CATHETER. UPON ARRIVAL PT SWINGING AT STAFF, TRYING TO KICK STAFF. CALL PLACED TO MD ESTRADA. MD ESTRADA W/ ORDERS FOR 4 POINT TUFF CUFFS. PT MOANING, PULLING AT RESTRAINTS, NOT ANSWERING QUESTIONS. GIVEN WARM BLANKET. RN ASKED "DOES THAT FEEL NICE?" REGARDING WARM BLANKET AND PT NODDED HEAD YES. PT CALL LIGHT IN REACH.
[2021-08-06 23:04] LABS: Source, Urine Foley catheter
[2021-08-06 23:06] LABS: Bilirubin, Urine Neg (Neg); Blood, Urine 5+ (Neg); Glucose Qualitative, Urine Neg (Neg); Ketones, Urine Neg (Neg); Leukocyte Esterase, Urine Neg (Neg); Nitrite, Urine Neg (Neg); Protein, Urine Neg (Neg); Urobilinogen, Urine NORM (Normal)
[2021-08-06 23:14] LABS: Appearance, Urine Clear (Clear); Color, Urine Yellow (P-Yellow)
[2021-08-06 23:15] LABS: Bacteria Not Seen /hpf; Squamous Epithelial Cells Not Seen /hpf (Few); White Blood Cells, Urine 0-2 /hpf (0-5); Yeast/Fungi Urine Mod /hpf
--- NOTE | 2021-08-07 05:38 | NUR ---
SHIFT SUMMARY PT ALERT, MOANING, COMBATIVE, NOT COOPERATIVE. SP02>92% RA. TELEMETRY SHOWS NSR, HR 70'S. VSS. PT HAS RECTAL TUBE DRAINING BROWN LIQUID STOOL TO GRAVITY. MCKENZIE CATHETER DRAINING TO GRAVITY. 2000ML OUT. PT PULLING AT LINES, COMBATIVE. WHEN TRYING TO APPLY BLOOD PRESSURE CUFF THIS AM, PT PRESSED ARM INTO THE BED TO MAKE IT DIFFICULT TO SLID CUFF AROUND ARM. PT SLEPT OFF AND ON THIS AM. PT CALL LIGHT IN REACH.
[2021-08-07 06:05] LABS: Hematocrit 31.7 % (37.0-53.0); Hemoglobin 10.9 g/dL (13.5-17.5); Mean Corpuscular HGB 34.2 pg (26.0-34.0); Mean Corpuscular HGB Conc 34.4 g/dL (31.5-36.5); Mean Corpuscular Volume 99 fL (80-100); Mean Platelet Volume 10.7 fL (9.1-12.4); Platelet Count 100 K/mm3 (150-400); RDW Coefficient Variation 15.6 % (11.7-14.2); RDW Standard Deviation 56.7 fL (35.1-46.3); Red Blood Cell Count 3.19 M/mm3 (4.30-5.90); White Blood Cell Count 8.61 K/mm3 (4.00-11.30)
[2021-08-07 06:29] LABS: Anion Gap 7 mmol/L (6-16); Blood Urea Nitrogen 34 mg/dL (8-24); Bun/Creatinine Ratio 39.7 (12.0-20.0); CO2, Blood 21 mmol/L (21-32); Calcium, Blood 9.3 mg/dL (8.5-10.1); Chloride, Blood 111 mmol/L (98-108); Creatinine, Blood 0.86 mg/dL (0.60-1.20); Glomerular Filtration Rate >60 (60-); Glucose, Blood 94 mg/dL (70-99); Sodium, Blood 139 mmol/L (136-145)
--- NOTE | 2021-08-07 17:59 | NUR ---
SHIFT NOTE PT WITH CONTINUED AMS T/O THE DAY. PT REMAINS IN RESTRAINTS AND IS CALLING OUT OCCASIONALLY. PT DOES GET AGITATED OCCASIONALLY BUT IS EASILY CALMED. PT WITH FREQUENT REPOSITIONING AND RESTRAINT MONITORING. NO SKIN BREAKDOWN NOTED FROM RESTRAINTS, SKIN INTACT. PT'S SPOUSE WITH NUMEROUS CONCERNS, SHE INFORMED DR URIOSTEGUI THAT SHE DOES NOT WISH FOR PT TO RECIEVE ATIVAN, ATIVAN WAS CHANGED FROM SCHEDULED TO PRN FOR THIS REASON. SPOUSE WAS EDUCATED THOROUGHLY ABOUT PT'S NPO STATUS, SHE THEN WAS WITNESSED BUT civil estimator ATTEMPTING TO GIVE PT FLUIDS, OTOLARYNGOLOGY SURGEON IS NOW AT BEDSIDE AT THE TIME OF THIS NOTE TO ADDRESS THAT PT IS VERY ALTERED AND CAN NOT PROTECT AIRWAY, SPOUSE CONTINUING TO DEMAND PT RECIEVE PO FLUIDS DESPITE EDUCATION. VSS. NO ACUTE CHANGES IN MENTATION T/O THE DAY, PT DOES OCCASIONALLY WAKE AND SAY A FEW WORDS.
[2021-08-08 03:59] LABS: Hematocrit 32.5 % (37.0-53.0); Hemoglobin 11.2 g/dL (13.5-17.5); Mean Corpuscular HGB 34.1 pg (26.0-34.0); Mean Corpuscular HGB Conc 34.5 g/dL (31.5-36.5); Mean Corpuscular Volume 99 fL (80-100); Mean Platelet Volume 10.6 fL (9.1-12.4); Platelet Count 100 K/mm3 (150-400); RDW Coefficient Variation 15.4 % (11.7-14.2); RDW Standard Deviation 55.8 fL (35.1-46.3); Red Blood Cell Count 3.28 M/mm3 (4.30-5.90)
[2021-08-08 04:15] LABS: Anion Gap 8 mmol/L (6-16); Blood Urea Nitrogen 34 mg/dL (8-24); Bun/Creatinine Ratio 38.7 (12.0-20.0); CO2, Blood 20 mmol/L (21-32); Calcium, Blood 9.5 mg/dL (8.5-10.1); Chloride, Blood 110 mmol/L (98-108); Creatinine, Blood 0.88 mg/dL (0.60-1.20); Glomerular Filtration Rate >60 (60-); Glucose, Blood 97 mg/dL (70-99); Magnesium, Blood 1.8 mg/dL (1.6-2.4); Potassium, Blood 4.7 mmol/L (3.5-5.5); Sodium, Blood 138 mmol/L (136-145)
--- NOTE | 2021-08-08 04:52 | NUR ---
SHIFT SUMMARY NO ACUTE CHANGES THIS SHIFT. VSS. PT REMAINS LETHAQRGIC BUT DOES MAKE SOME CONVERSATION WITH STAFF BUT MAINLY STILL GROANING. REMAINS IN SR. ON RA. FLEXISEAL IN PLACE FOR LACTULOSE ENEMAQS. MCKENZIE PATENT AND DRAINING. POWERGLIDE DRAWS BLOOD. PT REMAINS IN 4 POINT TOUGH CUFFS DUE TO BEING TOO STRONG FOR SOFT RESTRAINTS CURRENTLY. PT HAS CONTINUED TO REACH AND PULL AT LINES, WIRES, ETC DESPITE BEING RESTRAINED. OTHERWISE, PT RESTING OFF AND ON. PT TURNING SELF WELL. PT MOSNING SND YELLING OUT, CSLL LIGHT WITHIN REACH. BED IN LOW POSITION.
--- NOTE | 2021-08-08 18:15 | NUR ---
SHIFT SUMMARY; ASSUMED CARE AT 0700. A/A/OX2. 4PT TATS WHEN ASSUMING CARE. ANKLE TATS REMOVED. MCKENZIE IN PLACE DRAINING STEPHEN URINE. RECTAL TUBE IN PLACE. MOVES AROUND ON GURSAMEER, MORICARDO, YELLS AND APPEARS AGITATED AT TIMES. SLEPT FOR SEVERAL HOURS IN AM, NEURO IMPROVED IN AFTERNOON. CONFUSED AT TIMES AND AT TIMES DIRECTABLE. TATS REMOVED, SOFT BILATERAL WRIST RESTRAINTS PLACED. PULLED RECTAL TUBE OUT IN AFTERNOON. ATTENDS PLACED. NO STOOL SINCE TUBE REMOVAL. EVALUATED BY SPEECH TODAY. PUREE DIET WITH THICKEN LIQUIDS APPROVED. MEDS GROUND IN APPLESAUCE. SPOUSE AT BEDSIDE IN AFTERNOON, ASSISTED WITH FEEDING. MEPILEX IN PLACE ON COCCYX. BILATERAL SKIN TEARS AND ABRASIANS COVERED WITH CLEARSITE. NO ACUTE MEDICAL CHANGES, VSS, WILL CONTINUE TO MONITOR AND TREAT UNTIL CHANGE OF SHIFT.
--- NOTE | 2021-08-08 21:00 | NUR ---
PATIENT WAKES TO VERBAL STIMULATION. ORIENTED TO NAME, BIRTHDAY, AND FAMILY. HE FOLLOWS DIRECTIONS BUT NEEDS FREQUENT REDIRECTION. BILATERAL WRIST RESTRAINTS IN PLACE. DENIES PAIN. PUREE DIET WITH NECTAR THICK LIQUIDS. TOOK PILLS WELL CRUSHED IN APPLESAUCE. DRESSINGS IN PLACE TO SKIN TEARS TO BUE. ALLEVYN DRESSING IN PLACE TO BUTTOCKS. DISCUSSED POC FOR SHIFT. CALL LIGHT IN REACH. BED ALARM ON FOR SAFETY.
--- NOTE | 2021-08-08 22:20 | NUR ---
PATIENT RESTING IN BED. CONFUSED. HE IS CALM AND COOPERATIVE WHEN AWAKE. NEEDS REDIRECTION AT TIMES. SOFT WRIST RESTRAINTS REMOVED. BED ALARM ON.
--- NOTE | 2021-08-09 07:24 | NUR ---
SHIFT SUMMARY: PATIENT ORIENTED TO NAME, BIRTHDAY, AND FAMILY. IS FORGETFUL AND NEEDS REDIRECTION AT TIMES BUT HE IS COOPERATIVE. BILATERAL SOFT WRIST RESTRAINTS DISCONTINUED. SINUS RHYTHM ON TELE. ON ROOM AIR. TOLERATING NECTAR THICK LIQUIDS WITH SPOONS AND MEDS CRUSHED IN APPLESAUCE. NO BM THIS SHIFT. MCKENZIE DRAINING DARK URINE. PREVENTATIVE ALLEVYN DRESSING TO COCCYX. REPORT GIVEN TO ONCOMING RN.
--- NOTE | 2021-08-09 13:02 | NUR ---
TRANSFER NOTE ELLEN WHYTE REMOVED MCKENZIE CATHETER PER ORDERS. REPORT GIVEN BY THIS NURSE TO KWAME NICOLE APPROX 1245. PT LEFT PCU AT 1302 BY HOSPITAL BED ASSISTED BY ELLEN AND SANDRA WHYTE. PT WAS STABLE UPON TRANSFERA AND ALL OF PATIENT BELONGINGS WENT WITH PATIENT. THIS NURSE CALLED PATIENT'S NISHA TO UPDATE ON NEW ROOM 352.
--- NOTE | 2021-08-09 13:33 | NUR ---
PT TRANSFERED TO ROOM 352 FROM PCU 9, ORIENTED PT TO ROOM AND CALL SYSTEM, PT PLEASANT, ORIENTED TO SELF AND PLACE, FOLLOWS COMMANDS, THERAPY HAS SHOWED UP AND WAS ABLE TO WALK WITH THE PT IN THE HALLS, PT IS UNSTEADY, WILL NEED 1P ASSIST, PT NOW FEEDING SELF LUMCH WITH SUPERVISION UP IN THE CHAIR AT THE BEDSIDE, PT WILL HAVE A BED ALARM ON FOR SAFETY
--- NOTE | 2021-08-09 17:25 | NUR ---
SUMMARY PT SITTING UP IN THE CHAIR AT THE BEDSIDE, FULLY DRESSED, IS PRESENT, PT STATING HE WANTS TO LEAVE, AGREEABLE TO STAY AFTER SOME CONVINCING HE IS NOT READY TO GO HOME YET, DR JIMENEZ HERE TO SPEAK WITH THE SPOUSE AND PT, VSS, WILL CONT TO MONITOR
--- NOTE | 2021-08-09 18:11 | NUR ---
PT LEFT AMA, ENCOURAGED PT TO STAY IN ORDER FOR HIS CONDITION TO IMPROVE, DR JIMENEZ HAD BEEN BY TO SEE THE PT AND SPOUSE EARLIER, SPOUSE COULD NOT CONVINCE THE PT TO STAY, INFORMED PT HE WOULD NOT BE LEAVING WITH ANY PRESCRIPTIONS OR A WHEELCHAIR, PT STATED HE DID NOT CARE, PT AMBULATED TO THE ELEVATOR WITH HIS SPOUSE, DR JIMENEZ NOTIFIED, SHEET ROCK TAPER HELPER NOTIFIED, POWERGLIDE R UPPER ARM REMOVED PRIOR TO WALKING OUT
== END 2021-08-09 18:12 | disposition left against medical advice (07) | DRG 443 ==
LOC: ER 10:35 → ERHOLD 10:36 → PCU 21:50 → MEDS 08-07 11:18 → PCU 08-07 11:19 → MEDS 08-09 13:04
PROVIDERS: Emergency Medicine; Internal Medicine; Nurse Practitioner Acute Care; ADMIT Internal Medicine
DX: K72.00 Acute and subacute hepatic failure without coma (principal); F17.210 Nicotine dependence, cigarettes, uncomplicated; J45.909 Unspecified asthma, uncomplicated; I10 Essential (primary) hypertension; E87.5 Hyperkalemia; R33.8 Other retention of urine; Z53.29 Procedure and treatment not carried out because of patient's decision for other reasons; K70.31 Alcoholic cirrhosis of liver with ascites; Z20.822 Contact with and (suspected) exposure to COVID-19; D69.59 Other secondary thrombocytopenia; Z98.890 Other specified postprocedural states; Z79.899 Other long term (current) drug therapy
CPT/HCPCS: 0241U; 36415; 51701; 51703; 70450; 80048; 80053; 81001; 82140; 83735; 84132; 84484; 85025; 85027; 85610; 85730; 87086; 87106; 92610; 93005; 93010; 94640; 96374; 96376; 97110; 97162; 99285-25; A9270; C1751; G0378; G0480; J2060; J7030